=== PATIENT | female | born 1990 | race Caucasian/White ===

== ENCOUNTER 2016-08-21 13:07 | Emergency (ER) | payer MEDICAID ==
[~2016-08-21] VITALS: Ht 170.2 cm; Wt 90.7 kg
[2016-08-21 13:22] VITALS: BP 146/89
[2016-08-21] MEDS ORDERED: KETOROLAC TROMETH 60MG/2ML VIAL IM ONE (15:30)
== END 2016-08-21 16:16 | disposition home or self-care (01) ==
LOC: ER 13:20
DX: S46.912A Strain of unspecified muscle, fascia and tendon at shoulder and upper arm level, left arm, initial encounter (principal); W19.XXXA Unspecified fall, initial encounter; Y93.89 Activity, other specified; Y99.8 Other external cause status; Y92.89 Other specified places as the place of occurrence of the external cause
CPT/HCPCS: 73030; 96372; 99284; J1885

== ENCOUNTER 2018-07-01 11:59 | Emergency (ER) | payer MEDICAID ==
[~2018-07-01] VITALS: Ht 170.2 cm; Wt 104.3 kg
[2018-07-01 12:17] VITALS: BP 118/61
== END 2018-07-01 13:23 | disposition home or self-care (01) ==
LOC: ER 11:59
DX: S83.92XA Sprain of unspecified site of left knee, initial encounter (principal); W01.0XXA Fall on same level from slipping, tripping and stumbling without subsequent striking against object, initial encounter; Y93.01 Activity, walking, marching and hiking; Y92.096 Garden or yard of other non-institutional residence as the place of occurrence of the external cause
CPT/HCPCS: 73562; 81025

== ENCOUNTER 2021-12-27 13:41 | Inpatient (IN) | payer MEDICAID ==
[~2021-12-27] VITALS: Ht 170.2 cm; Wt 102.9 kg
[2021-12-27 14:37] LABS: Basophils # (auto) 0 10 ^3/uL (0-0.2); Eosinophils # (auto) 0.1 10 ^3/uL (0-0.8); Hemoglobin 7.3 g/dL (12.2-16.2); Lymphocytes # (auto) 1.2 10 ^3/uL (0.4-5.4); Monocytes # (auto) 0.1 10 ^3/uL (0-1.3); Neutrophils # (auto) 1.6 10 ^3/uL (1.6-8.6)
[2021-12-27 14:38] LABS: Eosinophils % (auto) 3.7 % (0.0-7.0); Hematocrit 20.9 % (36.0-46.0); Lymphocytes % (auto) 38.8 % (10.0-50.0); Mean Corpuscular Hemoglobin 33.3 pg (28.0-32.0); Monocytes % (auto) 2.3 % (0.0-12.0); Neutrophils % (auto) 54.2 % (37.0-80.0); Nucleated Red Blood Cells % 0.3 %; Red Cell Distribution Width 21.6 % (11.8-14.3)
[2021-12-27 15:02] LABS: Albumin 4.2 g/dL (3.4-5.0); BUN/Creatinine Ratio 10.3; Calcium 9.2 mg/dL (8.5-10.1); Potassium 3.6 mmol/L (3.5-5.1)
[2021-12-27 15:04] LABS: Total Protein 7.3 g/dL (6.4-8.2)
[2021-12-27] MEDS ORDERED: SODIUM CHLORIDE 0.9% 500 ML IVB ONE (16:15)
[2021-12-27] MEDS ORDERED: SODIUM CHLORIDE 0.9% 1,000 ML IV ONE (16:15)
[2021-12-27] MEDS ORDERED: IOHEXOL 300 MG/ML 100ML BOTTLE IJ ONE (17:00)
[2021-12-27 17:26] LABS: Magnesium 2.1 mg/dL (1.6-2.6)
[2021-12-27 17:42] LABS: Beta HCG, Quantitative < 1 mlU/mL (1-3)
[2021-12-27 17:57] LABS: INR 1.08 (0.9-1.15)
[2021-12-27] MEDS ORDERED: MORPHINE SULFATE INJ 2 MG/ml SYRG IV PRN ×2 (18:00→21:45)
[2021-12-27] MEDS ORDERED: NITROGLYCERIN 0.4 MG SL TAB SL PRN (18:00)
[2021-12-27 21:16] VITALS: BP 117/70
[2021-12-27] MEDS ORDERED: DOCUSATE SOD 100 MG CAP PO PRN (21:45)
[2021-12-27] MEDS ORDERED: PANTOPRAZOLE 40 MG/10 ML VIAL INJ IV ONE (21:45)
[2021-12-27] MEDS ORDERED: LORazepam 0.5 MG TAB PO PRN (21:45)
[2021-12-27] MEDS ORDERED: ACETAMINOPHEN 325 MG TAB PO PRN (21:45)
[2021-12-27] MEDS ORDERED: hydrALAZINE HCL 20 MG/ML VL IV PRN (21:45)
[2021-12-27] MEDS ORDERED: ONDANSETRON HCL 4 MG/2 ML VIAL IV PRN (21:45)
[2021-12-27 22:30] LABS: Magnesium 2.1 mg/dL (1.6-2.6); Phosphorus 4.5 mg/dL (2.5-4.90)
[2021-12-27] MEDS: SODIUM CHLORIDE 0.9% 1,000 ML IV SCH (23:08)
[2021-12-27 23:33] LABS: INR 1.07 (0.9-1.15); Partial Thromboplastin Time 21.3 sec (23.6-33.0)
[2021-12-28] VITALS (13 sets, daily range): BP systolic 101–148; BP diastolic 52–75
[2021-12-28 04:58] LABS: Basophils # (auto) 0 10 ^3/uL (0-0.2); Lymphocytes # (auto) 0.9 10 ^3/uL (0.4-5.4); Monocytes # (auto) 0.1 10 ^3/uL (0-1.3); Neutrophils # (auto) 1.1 10 ^3/uL (1.6-8.6); White Blood Cell 2.1 10^3/uL (4.4-10.8)
[2021-12-28 05:00] LABS: Eosinophils # (auto) 0 10 ^3/uL (0-0.8); Hematocrit 16.4 % (36.0-46.0); Lymphocytes % (auto) 41.5 % (10.0-50.0); Mean Corpuscular Hemoglobin 33.5 pg (28.0-32.0); Mean Corpuscular Volume 95.5 fL (80.0-100.0); Monocytes % (auto) 3.5 % (0.0-12.0); Nucleated Red Blood Cells % 0.3 %; Red Blood Cells 1.72 10^6/uL (4.0-5.20)
[2021-12-28 05:05] LABS: Red Cell Distribution Width 21.6 % (11.8-14.3)
[2021-12-28 05:08] LABS: Hemoglobin 5.8 g/dL (12.2-16.2)
[2021-12-28 05:16] LABS: Magnesium 2.2 mg/dL (1.6-2.6)
[2021-12-28 05:23] LABS: Albumin 3.6 g/dL (3.4-5.0); BUN/Creatinine Ratio 9.7; Bilirubin, Total 1.8 mg/dL (0.2-1.0); CRP High Sensitivity 0.34 mg/dL (< 0.3); Calcium 8.7 mg/dL (8.5-10.1); INR 1.05 (0.9-1.15); Partial Thromboplastin Time 23.3 sec (23.6-33.0); Phosphorus 5.3 mg/dL (2.5-4.90); Total Protein 6.4 g/dL (6.4-8.2); Uric Acid 4.9 mg/dL (2.6-6.0)
[2021-12-28 05:26] LABS: Thyroid Stimulating Hormone 1.77 uIU/mL (0.358-3.74)
[2021-12-28] MEDS: PANTOPRAZOLE 40 MG/10 ML VIAL INJ IV SCH ×2 (11:11→21:19)
[2021-12-28 13:31] LABS: Alcohol, Urine < 3.0 mg/dL (0-10); Amphetamine Screen, Urine NEGATIVE (NEGATIVE); Barbiturate Scree,Urine NEGATIVE (NEGATIVE); Cannabinoid Screen, Urine NEGATIVE (NEGATIVE); Phencyclidine Screen, Urine NEGATIVE (NEGATIVE); Protein, Urine 8.4 mg/dL (0.0-11.9)
[2021-12-28 13:35] LABS: Benzodiazephine Screen, Urine NEGATIVE (NEGATIVE); Cocaine Screen, Urine NEGATIVE (NEGATIVE); Opiate Scree,Urine NEGATIVE (NEGATIVE)
[2021-12-28 13:45] LABS: Urine Bacteria NONE SEEN /hpf (None Seen); Urine Blood Negative /uL (Negative); Urine Specific Gravity 1.032 (1.001-1.035); Urine WBC 1 /hpf (0 - 5)
[2021-12-28] MEDS: CLINDAMYCIN 600MG IV 50 ML IV SCH ×2 (14:00→21:19)
[2021-12-28] MEDS: SODIUM CHLORIDE 0.9% 1,000 ML IV SCH (14:40)
[2021-12-28] MEDS: SUCRALFATE 1 GM/10 ML ORAL SUSP PO SCH ×2 (17:48→21:19)
[2021-12-28 19:51] LABS: Hematocrit 21.1 % (36.0-46.0); Hemoglobin 7.4 g/dL (12.2-16.2)
[2021-12-28] MEDS: ATORVASTATIN 20 MG TAB PO SCH (21:19)
[2021-12-28] MEDS: HYDROcodone-ACET 5/325MG TAB PO PRN (23:05)
[2021-12-29 05:00] VITALS: BP 111/62
[2021-12-29 05:37] LABS: Hematocrit 20.1 % (36.0-46.0)
[2021-12-29 05:40] LABS: Hemoglobin 7.2 g/dL (12.2-16.2); Mean Corpuscular Hemoglobin 33.4 pg (28.0-32.0); Mean Corpuscular Hgb Conc. 35.9 g/dL (32.0-36.0); Red Blood Cells 2.16 10^6/uL (4.0-5.20); Red Cell Distribution Width 18.1 % (11.8-14.3)
[2021-12-29] MEDS: CLINDAMYCIN 600MG IV 50 ML IV SCH ×3 (05:58→21:43)
[2021-12-29 06:09] LABS: Basophils % (manual) 0 (0.0-2.0); Blast Cells 0; Myelocytes % 0; Promyelocytes % 0; Reactive Lymphocytes 0
[2021-12-29] MEDS: SUCRALFATE 1 GM/10 ML ORAL SUSP PO SCH ×4 (06:39→21:44)
[2021-12-29] MEDS: SODIUM CHLORIDE 0.9% 1,000 ML IV SCH (06:46)
[2021-12-29 07:32] LABS: Band Neutrophils % (manual) 14; Eosinophils % (manual) 3 (0-7); Lymphocytes % (manual) 39 (10.0-50.0); Metamyelocytes % 4; Monocytes % (manual) 1 (0-12)
[2021-12-29 09:00] VITALS: BP 113/69
[2021-12-29] MEDS: cefTRIAXone 1GM/50ML D5W 50 ML IV SCH (09:26)
[2021-12-29] MEDS: PANTOPRAZOLE 40 MG/10 ML VIAL INJ IV SCH ×2 (09:26→21:44)
[2021-12-29] MEDS ORDERED: LIDOCAINE VISCOUS 2% 15ML UD ONE (10:02)
[2021-12-29 12:49] VITALS: BP 122/62
[2021-12-29] MEDS ORDERED: PROPOFOL 10 MG/ML 20 ML IV ONE (12:57)
[2021-12-29] MEDS ORDERED: ONDANSETRON HCL 4 MG/2 ML VIAL ONE (12:57)
[2021-12-29] MEDS ORDERED: fentaNYL CITRATE 100 MCG/2 ML VL ONE (12:57)
[2021-12-29] MEDS ORDERED: SODIUM CHLORIDE LOCK 10 ML ONE (12:57)
[2021-12-29] MEDS ORDERED: MIDAZOLAM HCL 2MG/2ML 2ml VIAL (1mg/ml) ONE (12:57)
[2021-12-29] MEDS ORDERED: DexAMETHasone SOD PHOS 10MG/1ML VIAL INJ IV ONE (13:00)
[2021-12-29] MEDS ORDERED: ONDANSETRON HCL 4 MG/2 ML VIAL IV PRN (13:30)
[2021-12-29] MEDS ORDERED: METOCLOPRAMIDE HCL 5MG/ml INJ 2ml VIAL IV PRN (13:30)
[2021-12-29] MEDS ORDERED: MIDAZOLAM HCL 2MG/2ML 2ml VIAL (1mg/ml) IV PRN (13:30)
[2021-12-29] MEDS ORDERED: HYDROmorphone HCL 2 MG/ML VL/or syr IV PRN (13:30)
[2021-12-29] MEDS ORDERED: LABETALOL HCL 5 MG/ML 4ML SYRINGE IV PRN (13:30)
[2021-12-29] MEDS ORDERED: ePHEDrine SULFATE 50 MG/ML AMP IV PRN (13:30)
[2021-12-29] MEDS ORDERED: MORPHINE SULFATE 4 MG/ML SYR/VIAL IV PRN (13:30)
[2021-12-29] MEDS: GEMFIBROZIL 600 MG TAB PO SCH (15:44)
[2021-12-29 17:00] VITALS: BP 118/53
[2021-12-29] MEDS: ATORVASTATIN 20 MG TAB PO SCH (21:44)
[2021-12-29 22:00] VITALS: BP 115/65
[2021-12-30] MEDS: SODIUM CHLORIDE 0.9% 1,000 ML IV SCH (00:17)
[2021-12-30 04:45] VITALS: BP 102/60
[2021-12-30 05:41] LABS: White Blood Cell 2.2 10^3/uL (4.4-10.8)
[2021-12-30 05:43] LABS: Hematocrit 22.3 % (36.0-46.0); Hemoglobin 7.8 g/dL (12.2-16.2); Mean Corpuscular Hemoglobin 32.7 pg (28.0-32.0); Mean Corpuscular Hgb Conc. 34.9 g/dL (32.0-36.0); Mean Corpuscular Volume 93.6 fL (80.0-100.0); Red Blood Cells 2.38 10^6/uL (4.0-5.20); Red Cell Distribution Width 18.3 % (11.8-14.3)
[2021-12-30 05:51] LABS: Band Neutrophils % (manual) 0; Basophils % (manual) 0 (0.0-2.0); Blast Cells 0; Promyelocytes % 0; Reactive Lymphocytes 0
[2021-12-30] MEDS: SUCRALFATE 1 GM/10 ML ORAL SUSP PO SCH ×2 (06:09→12:15)
[2021-12-30] MEDS: CLINDAMYCIN 600MG IV 50 ML IV SCH (06:09)
[2021-12-30] MEDS ORDERED: FERR-7 PO (08:46)
[2021-12-30] MEDS ORDERED: PANT40T PO (08:46)
[2021-12-30] MEDS ORDERED: SUCR1TAB PO (08:47)
[2021-12-30 08:49] LABS: Eosinophils % (manual) 1 (0-7); Lymphocytes % (manual) 26 (10.0-50.0); Metamyelocytes % 1; Monocytes % (manual) 5 (0-12); Myelocytes % 1
[2021-12-30] MEDS: cefTRIAXone 1GM/50ML D5W 50 ML IV SCH (08:56)
[2021-12-30] MEDS: GEMFIBROZIL 600 MG TAB PO SCH (08:56)
[2021-12-30] MEDS: HYDROcodone-ACET 5/325MG TAB PO PRN (08:56)
[2021-12-30] MEDS: PANTOPRAZOLE 40 MG/10 ML VIAL INJ IV SCH (08:56)
[2021-12-30 09:00] VITALS: BP 110/45
[2021-12-30 12:36] VITALS: BP 110/45
== END 2021-12-30 13:45 | disposition home or self-care (01) | DRG 253 ==
LOC: ER 13:41 → TELE 17:48 → TELE-CENTR 20:39
PROVIDERS: ADMIT Hospitalist; ATTEND Family Medicine
PROC: 30233N1 Transfusion of Nonautologous Red Blood Cells into Peripheral Vein, Percutaneous Approach (ICD-10-PCS; 2021-12-28)
PROC: 0DJ08ZZ Inspection of Upper Intestinal Tract, Via Natural or Artificial Opening Endoscopic (ICD-10-PCS; principal; 2021-12-29 13:25)
DX: K92.0 Hematemesis (principal); K75.81 Nonalcoholic steatohepatitis (NASH); E66.9 Obesity, unspecified; D62 Acute posthemorrhagic anemia; K29.71 Gastritis, unspecified, with bleeding; N39.0 Urinary tract infection, site not specified; K21.9 Gastro-esophageal reflux disease without esophagitis; Z20.822 Contact with and (suspected) exposure to COVID-19; E78.5 Hyperlipidemia, unspecified; F10.20 Alcohol dependence, uncomplicated; Y90.9 Presence of alcohol in blood, level not specified; R16.1 Splenomegaly, not elsewhere classified; Z68.35 Body mass index [BMI] 35.0-35.9, adult
CPT/HCPCS: 36415; 43235; 71045; 74177; 76856; 80053; 80061; 80307; 80320; 81001; 82550; 82728; 83036; 83615; 83690; 83735; 83880; 84100; 84156; 84439; 84443; 84484; 84550; 84702; 85007; 85014; 85018; 85025; 85027; 85379; 85610; 85652; 85730; 86141; 86850; 86900; 86901; 86920; 87040; 87086; 93005; C9113; G0378; J0696; J1100; J2250; J2405; J2704; J3490

== ENCOUNTER 2022-07-07 22:10 | Emergency (ER) | payer MEDICAID ==
[~2022-07-07] VITALS: Ht 172.7 cm; Wt 95.0 kg
[~2022-07-07 22:10] MED LIST: FERR-7 PO; PANT40T PO; SUCR1TAB PO
[2022-07-07 23:29] VITALS: BP 130/79
[2022-07-07] MEDS ORDERED: CLIN-203 PO (23:59)
[2022-07-08] MEDS ORDERED: ONDANSETRON ODT 4 MG TAB PO ONE
[2022-07-08] MEDS ORDERED: HYDROcodone-ACET 5/325MG TAB PO ONE
== END 2022-07-08 00:09 | disposition home or self-care (01) ==
LOC: ER 22:11
DX: K04.7 Periapical abscess without sinus (principal); Z79.899 Other long term (current) drug therapy
CPT/HCPCS: 99283; Q0162